=== PATIENT | male | born 1995 | race Caucasian/White ===

== ENCOUNTER 2016-09-28 21:35 | Emergency (ER) | payer OTHER ==
[2016-09-28 21:49] VITALS: BP 136/71
--- NOTE | 2016-09-28 23:05 | RADIOLOGY REPORT (SQ) ---
EXAM DESCRIPTION: TIBIA FIBULA RIGHT COMPLETED DATE/TIME: 09/28/2016 10:45 pm REASON FOR STUDY: right leg pain . COMPARISON: None. NUMBER OF VIEWS: Two views. TECHNIQUE: Two radiographic images acquired of the right tibia and fibula to include the knee and an kle in at least one projection. LIMITATIONS: None. FINDINGS: MINERALIZATION: Normal. BONES: Moderately displaced transverse fracture of the proximal fibular diaphysis with approximately 1/2 shaft's width angel lateral displacement of the distal fragment SOFT TISSUES: No obvious swelling or foreign body. OTHER: No other significant finding. IMPRESSION: Moderately displaced transverse fracture of the proximal fibular diaphysis. TECHNICAL DOCUMENTATION: JOB ID: [id number] [employer]- All Rights Reserved
[2016-09-28] MEDS ORDERED: HYDROCODONE/ACETAMINOPHEN 5-325 MG TABLET PO ONE (23:15)
[2016-09-28] MEDS ORDERED: HYDROCODONE/ACETAMINOPHEN 5-325 MG 6 TAB/DSPK PO PRN (23:15)
--- NOTE | 2016-09-29 00:34 | ER Document Report ---
ED General - General Chief Complaint: Leg Injury Stated Complaint: FALL,LEG PAIN Time Seen by Provider: 09/28/16 22:37 Notes: Patient is a pleasant 21-year-old male who was on his roof trying to fix it when he fell off and landed onto his right leg. Patient says he has pain in his right leg and is unable to bear weight. Pain is below the right knee. He says he has some mild pain in his left calf muscle but has been able to bear weight on his left leg. He denies any pain of the knee ankle or foot on the left side. No pain in the ankle and foot on the right side. He denies he and his head. He denies any other injuries other than a small skin abrasion on the palm of the left hand. He takes no medications and is otherwise healthy. No other complaints at this time. TRAVEL OUTSIDE OF THE [place] IN LAST 30 DAYS: No Past Medical History - Social History Smoking Status: Never Smoker Frequency of alcohol use: None Drug Abuse: None Family History: Reviewed & Not Pertinent Patient has suicidal ideation: No Patient has homicidal ideation: No Renal/ Medical History: Denies: Hx Peritoneal Dialysis Review of Systems - Review of Systems Notes: My Normal Review Basic REVIEW OF SYSTEMS: CONSTITUTIONAL : Denies fever, chills, or sweats. Denies recent illness. MUSCULOSKELETAL: Pain in left leg. SKIN: Denies rash or skin lesions. HEMATOLOGIC : Denies easy bruising or bleeding. NEUROLOGICAL: Denies altered mental status or loss of consciousness. Denies headache. Denies weakness or paralysis or loss of use of either side. Denies problems with gait or speech. Denies sensory or motor loss. ALL OTHER SYSTEMS REVIEWED AND NEGATIVE. Physical Exam - Vital signs Vitals: Temp Pulse Resp BP Pulse Ox 98.6 F 84 16 136/71 H 99 09/28/16 21:48 09/28/16 21:48 09/28/16 21:48 09/28/16 21:48 09/28/16 21:48 - Notes Notes: General Appearance: Well nourished, alert, cooperative, no acute distress, moderate obvious discomfort. Well appearing. Vitals: reviewed, See vital signs table. Head: no swelling or tenderness to the head Eyes: PERRL, EOMI, Conjuctiva clear Extremities: strength 5/5 in all extremities, good pulses in all extremities, palpation over the lateral aspect of the right leg just below the right knee. No pain over the knee itself or above the knee. No pain to the right ankle or foot. Patient has minimal pain to palpation of her left calf. The calf muscles not hard or firm. Achilles tendon is nontender to palpation. Patient has good strength with plantar or dorsiflexion against resistance of the left foot. Patient does have a small quarter sized abrasion to the palmar aspect of the left hand. No active bleeding., no edema. Skin: Small abrasion to the palmar aspect of the left hand. Small abrasion over the left knee. Neuro: speech clear, oriented x 3, normal affect, responds appropriately to questions. Course - Vital Signs Vital signs: Temp Pulse Resp BP Pulse Ox 98.6 F 84 16 136/71 H 99 09/28/16 21:48 09/28/16 21:48 09/28/16 21:48 09/28/16 21:48 09/28/16 21:48 - Transfer of Care Notes: 09/29/16 03:04 The proximal fibular fracture. He was placed in a long-leg posterior splint. Gave him strict instructions to follow-up with orthopedist. I will have him call the orthopedist office on Friday for close follow-up. I have given crutches and encouraged him to remain nonweightbearing of the right leg. I did talk to him about compartment syndrome. I talked about the signs and symptoms of compartment syndrome. I informed him to return to the ER immediately if he has any other signs or symptoms. I talked to him about the splint and how to check capillary refill and to loosen the splint if he has any numbness or tingling in his foot or if he has a decreased capillary refill. I informed him that if he continues to have the symptoms despite loosening his splint he must return to the ER immediately. Patient agrees with plan will be discharged home. Dictation of this chart was performed using voice recognition software; therefore, there may be some unintended grammatical errors. Procedures - Immobilization Right Leg Pre-Proc Neuro Vasc Exam: Normal Immobilizer type: Long leg posterior Performed by: PCT Post-Proc Neuro Vasc Exam: Normal Discharge - Discharge Clinical Impression: Fracture, fibula Qualifiers: Encounter type: initial encounter Fibula location: proximal Fracture type: closed Fracture morphology: unspecified fracture morphology Laterality: right Qualified Code(s): S82.831A - Other fracture of upper and lower end of right fibula, initial encounter for closed fracture Condition: Good Disposition: HOME, SELF-CARE Instructions: Oral Narcotic Medication ([facility]) Additional Instructions: Splitn Precautions A splint has been placed. This will protect the area while healing begins. Your problem does NOT normally require a cast. It MUST, however, be held still! Keep the splint on ALL THE TIME until instructed to remove it by the doctor. As you begin to use the area, be careful. You shouldn't do anything which causes discomfort -- you may disturb the injury even with the splint in place. After the initial period of rest and elevation, if splint does not prevent pain when you move, come back. You may require placement of a different splint , or a cast. If there is unexpected severe pain, or numbness, discoloration, or swelling beyond the splint, you should return at once. If you feel that the splint has broken or become loose, come back. Please return to the ER immediately if you develop worsening pain, any numbness in your foot not relieved by loosening the juan wrap on your splint, or if you have a very firm and hard area on your leg that is painful. Please call the orthopedist, (Dr. wan) on Friday to make a follow up appointment. Referrals: MEGHANA VENEGAS MD [ACTIVE STAFF] - 09/30/16
== END 2016-09-29 04:04 | disposition home or self-care (01) ==
LOC: ER 21:35
PROC: 2W3LX1Z Immobilization of Right Lower Extremity using Splint (ICD-10-PCS; principal; 2016-09-28)
DX: S82.831A Other fracture of upper and lower end of right fibula, initial encounter for closed fracture (principal); S80.212A Abrasion, left knee, initial encounter; S60.512A Abrasion of left hand, initial encounter; W13.2XXA Fall from, out of or through roof, initial encounter; Y93.H3 Activity, building and construction; Y92.008 Other place in unspecified non-institutional (private) residence as the place of occurrence of the external cause
CPT/HCPCS: 99283